=== PATIENT | male | born 2000 | race Caucasian/White ===

== ENCOUNTER 2023-07-30 10:22 | Outpatient (AMB) | payer OTHER, SELFPAY ==
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
[2023-07-30 10:39] VITALS: BMI 31.3
== END 2023-07-30 11:13 | disposition home or self-care (01) ==
PROVIDERS: PCP Family Medicine; Visit Provider Physician Assistant
DX: S42.022A Displaced fracture of shaft of left clavicle, initial encounter for closed fracture (principal)
CPT/HCPCS: 99203

== ENCOUNTER 2023-07-30 10:22 | Outpatient (REF) | payer OTHER, SELFPAY ==
--- NOTE | ~2023-07-30 | XR_ITS ---
EXAMINATION: XR CLAVICLE, LEFT CLINICAL INFORMATION: Other specified disorders of bone, shoulder. COMPARISON: None available. TECHNIQUE: Two views of the left clavicle. FINDINGS: There is a displaced fracture through the mid body of the left clavicle with inferior displacement of the lateral/distal segment of the clavicle of more than a full clavicular width. Tiny ossific fragments are seen in the adjacent soft tissues. Acromioclavicular alignment preserved. XR/XR clavicle LT IMPRESSION: Displaced fracture through the mid body of the left clavicle. This study was presented today, 08/06/2023, for interpretation. PSA staff will provide results to referring provider at this time.
== END 2023-07-30 10:23 | disposition home or self-care (01) ==
LOC: HO.HOSX 10:22
PROVIDERS: PCP Family Medicine; Visit Provider Physician Assistant
DX: M89.8X1 Other specified disorders of bone, shoulder (principal); S42.022A Displaced fracture of shaft of left clavicle, initial encounter for closed fracture
CPT/HCPCS: 73000; 99202

== ENCOUNTER 2023-08-13 09:14 | Outpatient (REF) | payer OTHER, SELFPAY ==
--- NOTE | ~2023-08-13 | XR_ITS ---
EXAMINATION: XR CLAVICLE, LEFT CLINICAL INFORMATION: Fracture COMPARISON: 07/30/2023 TECHNIQUE: 2 of the left clavicle. FINDINGS: Redemonstration of displaced fracture of the mid left clavicle with approximately 1.7 cm of overlap between the fragments. There is some interval osseous bridging suggestive of early callus formation. XR/XR clavicle LT IMPRESSION: Redemonstration of displaced fracture of the mid left clavicle with some interval osseous bridging suggestive of early callus formation.
== END 2023-08-13 09:15 | disposition home or self-care (01) ==
LOC: HO.HOSX 09:14
PROVIDERS: Visit Provider Physician Assistant
DX: M89.8X1 Other specified disorders of bone, shoulder (principal); S42.022D Displaced fracture of shaft of left clavicle, subsequent encounter for fracture with routine healing; X58.XXXD Exposure to other specified factors, subsequent encounter
CPT/HCPCS: 73000; 99212

== ENCOUNTER 2023-08-13 09:30 | Outpatient (AMB) | payer OTHER, SELFPAY ==
--- NOTE | 2023-08-13 09:33 | A.OFFVIS_ITS ---
Intake Vital Signs 08/13/23 09:43 Height 5 ft 7 in Weight 200 lb BMI 31.3 Intake Visit Reasons: OV - left distal clavicle fx, DOI 07/17/23 Intake Note: Adrián is a 23 year old right hand dominant male who presents today for a follow up of his left distal clavicle fx, DOI 07/17/23. Xrays updated in office. Patient reports doing well, states pain comes with certain movements. He continues to wear sling when he out and about. Allergies No Known Allergies Allergy (Verified 08/13/23 09:43) HPI OV - left distal clavicle fx, DOI 07/17/23 HPI Details 23 yo male returns to the office today f or a follow-up left clavicle fracture. He states he has been doing well since his last visit. He denies pain except when he is sleeping on that side or putting his arm in awkward positions. No concerns today. 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 Review of Systems Const All systems reviewed & are unremarkable except as noted in HPI and below Physical Exam Vital Signs: BMI result Body Mass Index 31.3 Const General: cooperative, healthy appearing, comfortable, no acute distress, well developed and alert Orientation/consciousness: patient oriented x3 HEENT Head: Yes normal to inspection, Yes normocephalic and Yes atraumatic Eyes General: appearance normal, both eyes and all related structures Resp Effort & Inspection: normal respiratory effort and able to speak in complete sentences Cardio Rate: regular rate Peripheral pulses: Peripheral pulses 2+ throughout GI Palpation (GI): Soft to palpation Skin Lesions: no lesions Rashes: no rashes Neuro General: patient oriented x3 Extrem Other: Left clavicle: Skin is intact. No skin tenting or skin breakdown. No obvious bony deformity, no tenderness to palpation over the fracture site. Anterior deltoid sensation is intact. Full ROM of elbow with no pain. No pain along the forearm. Negative squeeze test. No pain along the distal radius. NVI. Results Reviewed Results Reviewed: X-rays of the left clavicle obtained in the office today show stable fracture pattern with interval healing and callus formation Assessment & Plan Assessment & Plan (1) Closed left clavicular fracture: Code(s): S42.002A - Fracture of unspecified part of left clavicle, initial encounter for closed fracture Qualifiers: Clavicle location: shaft Encounter type: subsequent encounter Fracture alignment: displaced Fracture healing: with routine healing Qualified Code(s): S42.022D - Displaced fracture of shaft of left clavicle, subsequent encounter for fracture with routine healing Plan He will discontinue the use of sling. An order for physical therapy was placed to initiate postural training and periscapular stabilization. He will hold off on RTC strengthening untill 8 weeks since his DOI. He will continue to remain out of work and see me back in 6 weeks with x-rays, sooner if needed. Orders: Orders XR clavicle LT Today M89.8X1 - Other specified disorders of bone, shoulder PT Evaluation and Treatment Today S42.022A - Displaced fracture of shaft of left clavicle, initial encounter for closed fracture Patient Instructions: Scribed for Mynor Zavala PA-C, by Castro Herzog medical case manager, on 08/13/2023 at 9:30 AM EST. I, Mynor Zavala PA-C, have personally reviewed and agree with the information entered by the scribe. Coding Level of Care Code Global (80297) Diagnoses Closed displaced fracture of shaft of left clavicle with routine healing, subsequent encounter S42.022D Clavicle location: shaft Encounter type: subsequent encounter Fracture alignment: displaced Fracture healing: with routine healing
[2023-08-13 09:43] VITALS: BMI 31.3
== END 2023-08-13 10:50 | disposition home or self-care (01) ==
PROVIDERS: PCP Family Medicine; Visit Provider Physician Assistant
DX: S42.022D Displaced fracture of shaft of left clavicle, subsequent encounter for fracture with routine healing (principal)
CPT/HCPCS: 99213

== ENCOUNTER 2023-09-22 10:02 | Outpatient (AMB) | payer OTHER, SELFPAY ==
--- NOTE | 2023-09-22 10:13 | A.OFFVIS_ITS ---
Intake Visit Reasons: OV - Left Clavicle Fracture DOI 07/17/23 Intake Note: Adrián is a 23 year old right hand dominant male who presents today for a follow up of his left distal clavicle fx, DOI 07/17/23. Patient reports he is doing great, no pain or discomfort anywhere . He states that he didn't get the change to work with OT. Allergies No Known Allergies Allergy (Verified 09/22/23 10:16) Medication List - Last Reconciled 09/22/23 by Mynor Zavala PA-C fluticasone propionate 110 mcg/actuation inhalation HPI HPI OV - Left Clavicle Fracture DOI 07/17/23: Details: 23-year-old right hand dominant male who returns to the office today for a follow-up of left clavicle fracture, 07/17/23. He states he has no pain or discomfort and is doing well overall. He has not yet started with physical therapy. He has no concerns today. 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 Review of Systems Const All systems reviewed & are unremarkable except as noted in HPI and below Physical Exam Const General: cooperative, healthy appearing, comfortable, no acute distress, well developed and alert Orientation/consciousness: patient oriented x3 HEENT Head: Yes normal to inspection, Yes normocephalic and Yes atraumatic Eyes General: appearance normal, both eyes and all related structures Resp Effort & Inspection: normal respiratory effort and able to speak in complete sentences Cardio Rate: regular rate Peripheral pulses: Peripheral pulses 2+ throughout GI Palpation (GI): Soft to palpation Skin Lesions: no lesions Rashes: no rashes Neuro General: patient oriented x3 Extrem Other: Left clavicle: Skin is intact. No skin tenting or skin breakdown. No obvious bony deformity, no tenderness to palpation over the fracture site. Anterior deltoid sensation is intact. Full ROM of elbow with no pain. No pain along the forearm. Negative squeeze test. No pain along the distal radius. NVI. Assessment & Plan Assessment & Plan (1) Closed left clavicular fracture: Code(s): S42.002A - Fracture of unspecified part of left clavicle, initial encounter for closed fracture Category: Medical Qualifiers: Clavicle location: shaft Encounter type: subsequent encounter Fracture alignment: displaced Fracture healing: with routine healing Qualified Code(s): S42.022D - Displaced fracture of shaft of left clavicle, subsequent encounter for fracture with routine healing Plan He will continue to increase activity as tolerated. I did recommend he use caution with impact or contact sports up until 3 months post-op. I did explain him the risk of refracture due to injury and he will see me back in 8 weeks with new x-rays, sooner if needed. Patient Instructions: Scribed for Mynor Zavala PA-C, by Castro Herzog bio medical technician, on 09/22/2023 at 10:15 AM EST.? I, Mynor Zavala PA-C, have personally reviewed and agree with the information entered by the scribe. Coding Level of Care Code Global (60887) Diagnoses Closed displaced fracture of shaft of left clavicle with routine healing, subsequent encounter S42.022D Clavicle location: shaft Encounter type: subsequent encounter Fracture alignment: displaced Fracture healing: with routine healing
== END 2023-09-22 10:32 | disposition home or self-care (01) ==
PROVIDERS: PCP Family Medicine; Visit Provider Physician Assistant
DX: S42.022D Displaced fracture of shaft of left clavicle, subsequent encounter for fracture with routine healing (principal)
CPT/HCPCS: 99213

== ENCOUNTER 2023-09-22 15:02 | Outpatient (REF) | payer OTHER, SELFPAY ==
--- NOTE | ~2023-09-22 | XR_ITS ---
EXAMINATION: XR CLAVICLE, LEFT CLINICAL INFORMATION: Fracture left clavicle COMPARISON: Prior x-rays of the clavicle most recent 08/11/2023 TECHNIQUE: Two views of the left clavicle. FINDINGS: There is increased callus crossing the displaced clavicle fracture with unchanged alignment compared to prior. No new abnormalities.. XR/XR clavicle LT IMPRESSION: Healing left clavicle fracture.
== END 2023-09-22 15:03 | disposition home or self-care (01) ==
LOC: HO.HOSX 15:02
PROVIDERS: Visit Provider Physician Assistant
DX: S42.022D Displaced fracture of shaft of left clavicle, subsequent encounter for fracture with routine healing (principal); X58.XXXD Exposure to other specified factors, subsequent encounter
CPT/HCPCS: 73000; 99212

== ENCOUNTER 2023-11-17 09:41 | Outpatient (REF) | payer OTHER, SELFPAY | END 2023-11-17 09:42 | disposition home or self-care (01) | LOC: HO.HOSX 09:41 | PROVIDERS: Visit Provider Physician Assistant | DX: Z13.89 Encounter for screening for other disorder (principal) ==